=== PATIENT | male | born 1995 | race Caucasian/White ===

== ENCOUNTER 2024-04-12 21:44 | Day surgery (SDC) | payer BC, SELFPAY ==
[2024-04-12] VITALS (7 sets, daily range): BP systolic 126–148; BP diastolic 69–91; BMI 26.8
[2024-04-12 15:16] LABS: % Basophils 0.3 % (0-2); % Eosinophils 0.4 % (0-6); % Immature Granulocytes 0.4 % (0-0.5); % Lymphocytes 5.9 % (20.5-51.1); % Monocytes 10.6 % (1.7-9.3); % Neutrophils 82.4 % (42.2-75.2); Absolute Eosinophils 0.1 10^3/uL (0-0.7); Absolute Immature Granulocytes 0.1 10^3/uL (0-0.05); Absolute Lymphocytes 0.8 10^3/uL (1.2-3.4); Absolute Monocytes 1.5 10^3/uL (0.1-0.6); Absolute Neutrophils 11.5 10^3/uL (1.4-6.5); Hematocrit 41.8 % (39.0-52.0); Mean Corp Hgb Conc. 35.9 g/dL (33.0-37.0); Mean Corpuscular Hgb 32.5 pg (27.0-31.0); Mean Corpuscular Volume 90.5 fL (80.0-94.0); Mean Platelet Volume 10.2 fL (7.4-10.4); Nucleated Red Blood Cells % 0 % (-); Platelet Count 200 10^3/uL (130-400); Red Blood Cell Count 4.62 10^6/uL (4.70-6.10); Red Cell Dist. Width 12.4 % (11.5-14.5)
[2024-04-12 15:32] LABS: ALT (SGPT) 22 U/L (0-50); AST (SGOT) 18 U/L (17-59); Albumin 4.9 g/dl (3.5-5.0); Alkaline Phosphatase 63 U/L (38-126); Blood Urea Nitrogen 11 mg/dl (9-20); Calcium 10.2 mg/dl (8.4-10.2); Carbon Dioxide 28 mmol/L (22-30); Chloride 101 mmol/L (98-107); Glucose 110 mg/dl (70-99); Lipase 26 U/L (23-300); Potassium 4.2 mmol/L (3.5-5.1); Sodium 138 mmol/L (135-145); Total Bilirubin 1.2 mg/dl (0.2-1.3); Total Protein 7.9 g/dl (6.3-8.2); eGFR > 60.00
[2024-04-12] MEDS: NSS 1000 IV (17:20)
[2024-04-12] MEDS: DILAUDID 0.5 MG IV ×3 (17:22→21:03)
[2024-04-12] MEDS: ZOFRAN 4 MG IV (17:22)
[2024-04-12] MEDS: OMNIPAQUE 50 ML PO (17:23)
[2024-04-12 17:43] LABS: Urine Albumin Negative (Neg - Trace); Urine Bilirubin 1+ (Negative); Urine Character Clear (Clear); Urine Color Yellow; Urine Glucose Negative (Negative); Urine Ketone Negative (Negative); Urine Leukocyte Trace (Negative); Urine Nitrite Negative (Negative); Urine Occult Blood Negative (Negative); Urine Specific Gravity 1.005 (<1.030); Urine Urobilinogen Negative (Neg - 1+)
[2024-04-12 17:50] LABS: Urine Bacteria Few (Negative); Urine Red Blood Cell 0-2 /HPF (0-2); Urine White Cell 0-2 /HPF (0-5)
--- NOTE | 2024-04-12 21:02 | ED.GENMED ---
History of Present Illness
General
Chief Complaint: Abdominal Pain
Source: patient
Exam Limitations: none
Time Seen by Provider: 04/12/24 16:56
Nursing documentation reviewed up to this point in time: agreed with
Travel History
Have you had any contact with someone who has COVID-19?: No
Do you have any symptoms of coronavirus? Fever > 100 degrees, chills, cough, shortness of breath, sore throat, loss of taste or smell, muscle aches, or headache?: No
History of Present Illness
History of Present Illness:
Patient to ED wt complaint of RLQ abdominal pain. States he had generalized abdominal discomfort yesterday. Today pain became worse and migrated to RLQ. Brought self to ED for eval. Denies fever/chills. +Nausea, no vomiting, no diarrhea.
Past History
Past History
ED Past Medical History: None
ED Past Surgical History: Other (dermal cyst removed.)
Review of Systems
Review of Systems
Allergies reviewed?: Yes
All Other Systems: ROS reviewed and negative except as documented in HPI and ROS
Constitutional: Reports no symptoms
EENT: Reports no symptoms
Respiratory: Reports no symptoms
Cardiac: Reports no symptoms
ABD/GI: Reports abdominal pain (RLQ)
: Reports no symptoms
Musculoskeletal: Reports no symptoms
Skin: Reports no symptoms
Neurological: Reports no symptoms
Psychiatric: Reports no symptoms
Phy Exam
General Physical Exam
General Presentation: mild distress
General age: appears stated age
General Skin: warm and dry
General Habitus: normal
General Mental: alert
Gastrointestinal Exam
Gastrointestinal Exam: normal bowel sounds, soft, no organomegaly, non distended and no cva tenderness
Palpation: left upper quadrant: No tenderness, left lower quadrant: No tenderness, right upper quadrant: No tenderness and right lower quadrant: Moderate tenderness
Musculoskeletal Exam
Musculoskeletal Exam: full ROM and neuro vasc intact
Skin Exam
Skin Exam: normal color, warm/dry and no rash
Psychiatric Exam
Psychiatric Exam: normal mood/affect
Course
Orders/Labs/Results
Orders:
Orders
04/12/24 15:10
Complete Blood Count/With Diff Urgent
Comprehensive Metabolic Panel Urgent
Lipase Urgent
04/12/24 17:06
HYDROmorphone [Dilaudid] 0.5 mg IV NOW STA
Iohexol [Omnipaque] See Protocol PO NOW STA
Ondansetron Injectable [Zofran] 4 mg IV NOW STA
04/12/24 17:07
CT Abd/pel W Iv And Oral Contr Urgent
Comment:
Reason For Exam: RLQ pain
0.9% Sodium Chloride 1000 ml [Nss] 1,000 ml IV BOLUS
04/12/24 17:37
Urinalysis Reflex To Culture Urgent
Date Specimen was Collected: 04/12/24
Time Specimen was Collected: 17:27
Urine Microscopic Reflex Cult Urgent
04/12/24 18:34
HYDROmorphone [Dilaudid] 0.5 mg IV NOW STA
04/12/24 20:59
HYDROmorphone [Dilaudid] 0.5 mg IV NOW STA
04/12/24 21:00
Piperacillin/Tazo 3.375 Gram [Zosyn] 3.375 gram in 50 ml IV NOW
04/12/24 21:19
Fentanyl Citrate/Pf [Sublimaze] 100 mcg .ROUTE .STK-MED ONE
Lidocaine HCl/Pf [Xylocaine-Mpf 1% Vial] 50 mg .ROUTE .STK-MED ONE
Midazolam HCl [Versed] 2 mg .ROUTE .STK-MED ONE
Propofol [Diprivan] 20 ml .ROUTE .STK-MED
Rocuronium Blount [Rocuronium] 50 mg .ROUTE .STK-MED ONE
Succinylcholine Chloride [Succinylcholine] 200 mg .ROUTE .STK-MED ONE
04/12/24 21:22
Ondansetron Injectable [Zofran] 4 mg .ROUTE .STK-MED ONE
04/12/24 21:37
Type+Screen Urgent
04/12/24 21:47
Bupivacaine Pf 0.5% [Sensorcaine 0.5% Single Dose] 30 ml .ROUTE .STK-MED ONE
04/12/24 22:09
Fentanyl Citrate/Pf [Sublimaze] 100 mcg .ROUTE .STK-MED ONE
Midazolam HCl [Versed] 2 mg .ROUTE .STK-MED ONE
04/12/24 22:24
HYDROmorphone [Dilaudid] 0.25 mg IV PACU-Q5MPRN PRN
HYDROmorphone [Dilaudid] 0.5 mg IV PACU-Q5MPRN PRN
Meperidine [Demerol] 12.5 mg IV PACU-Q5MPRN PRN
Ondansetron Injectable [Zofran] 4 mg IV PACU-ONCEPRN PRN
Prochlorperazine [Compazine] 5 mg IV PACU-ONCEPRN PRN
Notify MD As Directed
Notify physician if: for SDS patients with known or suspected sleep obstructive sleep apnea, monitor in the
PACU.
Notify MD for any apneic/desaturation episodes
O2 Therapy [RESP] Urgent
Titrate/Wean O2 to maintain O2 sat greater than (%): 92
Special Instructions: -Provide supplemental oxygen to achieve O2 sat of 92% or greater.
-After 15 min, may wean O2 and discontinue if patient is able to maintain O2 sat of 92%
or greater during recovery period.
If patient is a discharge home, without oxygen therapy, notify anestheiologist if
unable to maintain O2 SAT of 92% or greater on room air for MD clearance.
04/12/24 22:29
OR Pathology Routine
Pre-Operative Diagnosis: acute appendicitis
Post-Operative Diagnosis: same
Operative Procedure: laparoscopic appendectomy
Surgeon: ajay
Circulating Nurse: eloy
Specimen Type: appendix
04/12/24 22:30
Normosol (Mult Electrolytes) [Normosol-R] 1,000 ml IV PER PROTOCOL
Abnormal Lab Results
04/12/24 04/12/24
15:10 17:37
WBC 14.0 H 10^3/uL
(4.8-10.8)
RBC 4.62 L 10^6/uL
(4.70-6.10)
MCH 32.5 H pg
(27.0-31.0)
Abs Immat Gran (auto) 0.1 H 10^3/uL
(0-0.05)
Absolute Neuts (auto) 11.5 H 10^3/uL
(1.4-6.5)
Absolute Lymphs (auto) 0.8 L 10^3/uL
(1.2-3.4)
Absolute Monos (auto) 1.5 H 10^3/uL
(0.1-0.6)
Neutrophils % 82.4 H %
(42.2-75.2)
Lymphocytes % 5.9 L %
(20.5-51.1)
Monocytes % 10.6 H %
(1.7-9.3)
Glucose 110 H mg/dl
(70-99)
Urine Bilirubin 1+ A
(Negative)
Leukocyte Esterase Rfl Trace A
(Negative)
Urine Bacteria (Reflex) Few A
(Negative)
04/12/24 15:10
04/12/24 15:10
Vital Signs
Initial and Last Documented VS:
Initial Vital Signs
Temp Pulse Resp BP Pulse Ox
98.6 F 110 20 128/91 96
04/12/24 15:03 04/12/24 15:03 04/12/24 15:03 04/12/24 15:03 04/12/24 15:03
Last Documented Vital Signs
Temp Pulse Resp BP Pulse Ox
99.2 F 99 18 141/69 98
04/12/24 20:58 04/12/24 20:58 04/12/24 20:58 04/12/24 20:58 04/12/24 20:58
*Radiology
Radiology exam reviewed: radiology read reviewed
*Pulse Oximetry
Patient hypoxic: no
*Critical Care Note
Total Time (30-74mins, 75-104mins- exclusive of procedures): Not Applicable
Update Note
Update Note:
Acute appendicitis with perforation. Ananth Moss notified of CT findings and will be in to see patient. Patient to OR tonight for appendectiomy. Praveenn started in dept. He remains awake and alert, non toxic appearing.
ED Attending Note
-
Portions of this chart may have been created with voice recognition software.� Occasional wrong word or��sound alike� substitutions may have occurred due to the inherent limitations of voice recognition software.
Discharge Plan
Departure
Patient Disposition: OR
Date of Disposition: 04/12/24
Time of Disposition: 21:06
Admit to doctor: Ajay
Presentation/result/management discussed w/ accepting MD/DO: Dr. Moss
Patient with high blood pressure during this ER visit?: No
Condition: Fair
Covid-19: Not Applicable
Discharge Problem:
Acute appendicitis
Interventions
Interventions:
*Risk Screen - Suicide Last Done: 04/12/24 18:57
*General Assessment Last Done: 04/12/24 18:57
*Neglect/Abuse Screening Last Done: 04/12/24 18:57
*ED COVID-19 Vaccine History Last Done: 04/12/24 15:03
*Nursing Disposition Last Done: 04/12/24 21:55
SI-Vltogq-Lrxoardxlq Assessment Last Done: 04/12/24 18:57
Discharge Date and Time
Discharge Date/Time: 04/12/24 21:56
[2024-04-12] MEDS: ZOSYN 50 IV (21:03)
--- NOTE | 2024-04-12 23:05 | HPS.HSE ---
Family Physician
-
Family Physician: * NONE
Chief Complaint
-
Right lower quadrant abdominal pain
History of Present Illness
This is a 28-year-old male with no significant past medical or surgical history other than open right inguinal hernia repair as a child who presents with a 1 day history of initially periumbilical now focally right lower quadrant abdominal pain.
The patient denies Fever, Chest Pain, Shortness Of Breath, Nausea, Vomiting, changes in urinary and bowel habits, unintentional weight loss, jaundice, icterus, acolic stools.
Last colonoscopy: Never
Medical History
Past Medical History
Past Medical History: Reports None
Past Surgical History: Reports Other (Open right inguinal hernia repair as a child)
Social History
Tobacco: Non-smoker
Alcohol: Occasional
Drug: None
Personal: Single
Living: Alone
Employment: Employed
Family History
Family History: Not pertinent
Allergies / Home Medications
Allergies reflects when Allergies were last updated in [employer].
Home Medications with original date entered in [employer]
Allergy/Medication List:
None
Review of Systems
-
A 12 point ROS was completed and negative except as noted: Yes
Physical Exam
Vital Signs
Vital Signs
Temp Pulse Resp BP Pulse Ox
99.2 F 99 18 141/69 98
04/12/24 20:58 04/12/24 20:58 04/12/24 20:58 04/12/24 20:58 04/12/24 20:58
Physical Exam
General: Well Developed and Well Nourished
Respiratory: Non Labored Respirations
GI: Soft, Non Distended and Tender (Focally tender to palpation in the right lower quadrant.)
Laboratory Results
-
04/12/24 15:10
04/12/24 15:10
Laboratory Results
Total Bilirubin 1.2 mg/dl (0.2-1.3) 04/12/24 15:10
AST 18 U/L (17-59) 04/12/24 15:10
ALT 22 U/L (0-50) 04/12/24 15:10
Alkaline Phosphatase 63 U/L (38-126) 04/12/24 15:10
Lipase 26 U/L (23-300) 04/12/24 15:10
Data Reviewed
-
CT Scan: Image Personally Visualized and interpreted, Report Reviewed by me, Discussed with Physician, Discussed with Patient and Discussed with Family
Lab Data: Labs Reviewed by me, Discussed with Physician, Discussed with Patient and Discussed with Family
Impression/Plan
-
IMPRESSION:
This is a 28-year-old male who presents with a 1 day history of right lower quadrant pain as well as nausea. Tender to palpation in the right lower quadrant, leukocytosis, CT scan with dilated tubular structure with some surrounding free fluid in
the right lower quadrant all concerning for acute appendicitis, likely perforated.
PLAN:
Will plan for laparoscopic appendectomy in the OR tonight.
N.p.o., IV fluids, IV antibiotics.
Risks/Benefits/Alternatives, expected postoperative course and possible complications (bleeding, infection, injury to surrounding structures, acute/chronic pain) discussed at length. Patient wishes to proceed with surgery. All questions answered.
Consent obtained.
--- NOTE | 2024-04-12 23:09 | W.SUR.PREOP ---
Pre-Operative Surgical Note
-
I have examined this patient prior to the performance of the scheduled procedure.
The patient's condition is unchanged from the time of the current History and
Physical and the patient is able to undergo the scheduled procedure.
--- NOTE | 2024-04-12 23:09 | W.IMMPOSTOP ---
Surgical Immed Post Op Note
-
Primary Surgeon: Olivier Moss MD
Assisting Surgeon: None
Pre-op Diagnosis: Acute appendicitis
Post-op Diagnosis: Perforated appendicitis
Procedure Performed: Laparoscopic appendectomy
Anesthesia Type: General
Specimen / Cultures:
1. Appendix
2. Periappendiceal fluid for wound culture
Estimated Blood Loss: 3 cc
Complications: None
Operative Findings: 3x 5 mm port appendectomy. Appendix plastered to the right lateral sidewall, carefully peeled off. Some purulent fluid noted in the right lower quadrant as well as the pelvic sidewall. All suctioned up until clear. Base of
the appendix was viable and ligated with 2-0 PDS Endoloops and divided with the LigaSure.
POST OP PLAN:
Imaging: None
Labs: Routine AM
Diet: Advance to Regular as tolerated
Analgesia: Tylenol 650mg q6 Linda, Didi 5mg q6 PRN, Dilaudid 0.5mg q2h PRN
Neuro/vascular checks: q4h
AC/AP: Hold Therapeutic AC, Ok for DVT PPx
Activity: Ad Carina
Wound/Incisions/Drains: Routine
Abx: Zosyn while in house, can transition to Augmentin on discharge x 4 days
Dispo: RNF, anticipate discharge home tomorrow.
--- NOTE | 2024-04-12 23:13 | OR.RPT ---
Operative Report
Operative Report
Patient Name: Dieudonne Cline
: 1995
Date of Operation: 04/12/2024
Preoperative Diagnosis: Acute Appendicitis
Postoperative Diagnosis: Same
Procedure(s):
Laparoscopic Appendectomy
Surgeon(s):
Dr. Moss
International Manager(s):
None
Anesthesia: General
Estimated Blood Loss: 3 cc
Urine Output: None
Drains/Lines/Implants: None
Specimens:
1. Appendix
HPI/Surgical Indications:
This is a 28-year-old male who presents with a 1 day history of abdominal pain. Exam, labs and imaging are consistent with acute appendicitis. Risks/Benefits/Alternatives were discussed at length, and the patient agreed to proceed with surgery.
Operative Findings: 3x 5 mm port appendectomy. Appendix plastered to the right lateral sidewall, carefully peeled off. Some purulent fluid noted in the right lower quadrant as well as the pelvic sidewall. All suctioned up until clear. Base of
the appendix was viable and ligated with 2-0 PDS Endoloops and divided with the LigaSure.
Procedure Description:
The patient was placed in the supine position, with the left arm tucked, and general anesthesia was induced. The abdomen was prepared and draped in a sterile fashion so as to expose the entire abdomen. A surgical time out was taken. Abdominal access
was obtained with an 5mm infra-umbilical Veress entry. After confirming no injury on entrance, two additional 5mm ports were placed in the suprapubic area just off midline and in the left lower quadrant. The patient was placed in Trendelenberg with
the right slightly up . The appendix was suppurative, inflamed and plastered to the right lateral sidewall. This was gently peeled off of this area. There was some pus noted in this area as well as in the right pelvic sidewall. This was all
suctioned up until clear. The mesoappendix was divided using ligasure bipolar energy device. The base of the appendix appeared uninvolved and was ligated/divided using two 0-PDS Endoloops and the energy device. The appendix was placed in a specimen
retrieval bag. Hemostasis was confirmed and the ports were removed under visualization. The specimen was passed off the field. A wound culture was sent from the periappendiceal fluid. The umbilical port was closed with a [id number] 0-PDS and
the skin for all three ports was closed with interrupted monocryls and covered with dermabond. The patient was awoken from anesthesia in good condition and transported to the recovery area.
I was the attending physician and performed the procedure with no assistance. I was present for all portions of the case
Olivier Moss MD
[2024-04-12] MEDS: NORMOSOL-R 1000 IV ×2 (23:23→23:26)
[2024-04-13 00:28] VITALS: BP 146/79; BMI 26.7
[2024-04-13] MEDS: TYLENOL 650 MG PO ×3 (00:52→09:14)
[2024-04-13] MEDS: TORADOL IV (00:52)
[2024-04-13 01:30] VITALS: BP 134/82
[2024-04-13 02:30] VITALS: BP 137/76
--- NOTE | 2024-04-13 03:13 | PTCARENOTE ---
0015, pt arrived to room 401-1. oriented to room and floor routines. inst senior microsoft consultant royal and POC including pain medications. admission completed, all questions addressed. Pt oob to br x1 assist with +void., tolerating clear liquids, inst on how to
order breakfast in AM
[2024-04-13 03:30] VITALS: BP 130/72
[2024-04-13] MEDS: TORADOL 10 MG IV (05:00)
[2024-04-13] MEDS: ZOSYN 50 IV ×2 (05:16→10:04)
[2024-04-13 06:29] LABS: Hematocrit 36.1 % (39.0-52.0); Hemoglobin 12.7 g/dL (13.0-18.0); Mean Corp Hgb Conc. 35.2 g/dL (33.0-37.0); Mean Corpuscular Hgb 33.1 pg (27.0-31.0); Mean Platelet Volume 10.6 fL (7.4-10.4); Platelet Count 156 10^3/uL (130-400); Red Blood Cell Count 3.84 10^6/uL (4.70-6.10); Red Cell Dist. Width 12.5 % (11.5-14.5); White Blood Cell Count 10.4 10^3/uL (4.8-10.8)
[2024-04-13 06:56] LABS: Blood Urea Nitrogen 11 mg/dl (9-20); Calcium 8.8 mg/dl (8.4-10.2); Carbon Dioxide 30 mmol/L (22-30); Chloride 101 mmol/L (98-107); Estimated Creatinine Clearance > 125 ml/min; Glucose 117 mg/dl (70-99); Potassium 3.8 mmol/L (3.5-5.1); Sodium 137 mmol/L (135-145); eGFR > 60.00
[2024-04-13 07:56] VITALS: BP 103/69
--- NOTE | 2024-04-13 08:43 | W.PN.GS2 ---
Today's Communication / Plan
-
Dispo planning
Assessment / Plan
-
28-year-old male postop day 1 from a laparoscopic appendectomy. Doing well, expected postoperative course.
Will DC home after breakfast if tolerating food well. 4-day course of antibiotics.
All questions answered.
Time Spent
Total Time Spent with Patient (in minutes): 20
Subjective Data
-
Date of Service: April 13, 2024
Interval Events:
No acute events overnight. Slept well. Pain Controlled. Denies Nausea/Vomiting, +bowel function. Tolerating diet.
Objective Data
-
Intake and Output
04/12/24 04/13/24 04/14/24
06:59 06:59 06:59
Intake Total 100 / 100
Balance 100 / 100
Intake:
Oral fluids 0 / 0
IV fluids (Total) 100 / 100
Normosol 100 / 100
Other:
Number of approximated MODERATE 1
amounts of urine
Vital Signs
Temp Pulse Resp BP Pulse Ox
97.6 F 72 18 103/69 96
04/13/24 07:56 04/13/24 07:56 04/13/24 07:56 04/13/24 07:56 04/13/24 07:56
Lab Results
04/13/24 06:15
04/13/24 06:15
Calcium 8.8 mg/dl (8.4-10.2) 04/13/24 06:15
Total Bilirubin 1.2 mg/dl (0.2-1.3) 04/12/24 15:10
AST 18 U/L (17-59) 04/12/24 15:10
ALT 22 U/L (0-50) 04/12/24 15:10
Alkaline Phosphatase 63 U/L (38-126) 04/12/24 15:10
Total Protein 7.9 g/dl (6.3-8.2) 04/12/24 15:10
Albumin 4.9 g/dl (3.5-5.0) 04/12/24 15:10
Physical Exam
-
GENERAL/NEURO: Awake, Alert, no distress
CHEST: Unlabored breathing on RA
ABDOMEN: Soft, Non-Tender, Non-Distended, incisions clean dry and intact.
--- NOTE | 2024-04-13 09:29 | CM ---
Alert awake oriented patient who lives in an apartment with 12 steps to enter.He is independent in driving and all activities of daily living.Offered VN he declined. No adaptive devices. He is postop PSC. His parents will drive him home.
No SNF/No VN hx
Pharmacy [facility] in [place] in summary
PCP None Pt will call insurance to locate PCP
PLAN Home no needs
== END 2024-04-13 11:39 | disposition home or self-care (01) ==
LOC: PACU 21:44
PROVIDERS: Nurse Practitioner; ATTENDING PHYSICIAN Surgery; EMERGENCY PHYSICIAN Emergency Medicine
DX: K35.32 Acute appendicitis with perforation, localized peritonitis, and gangrene, without abscess (principal)
CPT/HCPCS: 44970; 88304; 74177; 80048; 80053; 81003; 81015; 83690; 85025; 85027; 86850; 86900; 86901; 87070; 87075; 87077; 87205; 96365; 96375; 96376; 99285; G0378; Q9967